=== PATIENT | female | born 1940 | race Caucasian/White ===

== ENCOUNTER 2023-11-28 12:27 | Emergency (ER) | payer MEDICARE ==
[~2023-11-28 12:27] MED LIST: DIPRIVAN 200 MG/20 ML IV ONE
[2023-11-28] MEDS ORDERED: LIDOCAINE HCL 2% 100 MG/5 ML IJ ONE (12:28)
--- NOTE | 2023-11-28 12:29 | XRAY ---
Indication: Bilateral L4-S1 MBB. Intraoperative fluoroscopy provided for 15 seconds. Single digital spot image submitted for interpretation demonstrates posterior needle tips projecting over expected left and right L4-S1 nerve roots. Correlate with intraoperative findings/report.
--- NOTE | 2023-11-28 12:33 | XRAY ---
15 seconds of fluoroscopy was used in surgery for a bilateral L4-S1 MBB.
[2023-11-28 12:59] VITALS: TEMP 97.1
[2023-11-28 13:21] LABS: Absolute Neutrophil Ct (ANC) 4.21 x10^3/uL (1.4-6.9); BASOPHIL % 0.5 % (0.0-0.4); Basophil (Absolute #) 0.04 x10^3/uL (0-0.4); Eosinophil % 1.8 % (0.00-5.0); Eosinophil (Absolute #) 0.13 x10^3/uL (0-0.5); Hematocrit 40.2 % (35-47); Hemoglobin 13.2 g/dL (12.0-16.0); IMMATURE GRAN # 0.01 x10^3u/L (0.00-0.03); IMMATURE GRAN % 0.1 % (0.00-0.4); Mean Cell Volume 96.6 fL (78-100); Mean Corpuscular Hemoglobin 31.7 pg (26-32); Mean Corpuscular Hgb Concent. 32.8 g/dL (32-36); Mean Platelet Volume 10.3 fL (7.5-11.0); Monocyte (Absolute #) 0.43 x10^3/uL (0.0-1.3); Monocytes % 5.8 % (0.0-12.0); Neutrophil % 56.8 % (36.0-66.0); Platelet Count 253 x10^3/uL (150-450); Red Blood Count 4.16 x10^6/uL (4.1-5.4); Red Cell Distribution Width 12.6 % (11.5-14.0); White Blood Count 7.4 x10^3/uL (4.0-10.5)
[2023-11-28 13:37] LABS: INR 0.98 (0.8-3.0); PROTIME 10.7 SECONDS (9.4-12.5); PTT 26.6 SECONDS (25.1-36.5)
[2023-11-28 13:44] LABS: ALBUMIN 4.2 g/dL (3.5-5.0); BILIRUBIN,TOTAL 0.8 mg/dL (0.2-1.3); Calcium 9.7 mg/dL (8.4-10.2); Creatinine 1 1.21 mg/dL (0.52-1.04); Potassium 4.3 mmol/L (3.5-5.1); Total Protein 7.2 g/dL (6.3-8.2)
[2023-11-28] MEDS ORDERED: Lactated Ringers 1,000 ML IV ONE (13:45)
--- NOTE | 2023-11-28 13:51 | XRAY ---
Indication: Atrial fibrillation. Comparison: None Portable apical lordotic chest demonstrates minimal left base subsegmental atelectasis/scarring. Remaining lungs clear. Heart not enlarged with tortuous descending aorta. Bony thorax intact with osteopenia, mild degenerative changes, and incompletely visualized lumbar dextroscoliosis. Impression: Nonacute chest with chronic features.
[2023-11-28 14:09] VITALS: BP 131/78; PULSE 88; RESP 18; O2SAT 95
--- NOTE | 2023-11-28 14:12 | ERPHSYRPT ---
- History of Present Illness Time Seen by Provider: 11/28/23 12:49 Source: patient Exam Limitations: no limitations Patient Subjective Stated Complaint: pt had injections to her back today and during the procedure they noticed that she developed a new onset of a-fib Triage Nursing Assessment: Pt was brought to the ER by a PACU nurse, hypertensive, denies pain, pulses normal, A-Fib, denies any chest pain, denies difficulty breathing, doesn't appear to be in any distress Physician History: 83-year-old female with history of hypertension, diabetes mellitus, GERD, chronic back pain who got injections today in the back, was not postop recovery when it was noticed that patient's rhythm was not sinus but atrial fibrillation and she has no history of A-fib. Patient does see Dr. Denney but has no known diagnosis. She denies any chest pain palpitations or shortness of breath. No abdominal pain nausea or vomiting. Denies any feeling of dizziness or lightheadedness. Does report some upset stomach yesterday. Allergies/Adverse Reactions: iodine Allergy (Verified 11/28/23 13:01) shellfish derived Allergy (Verified 11/28/23 13:01) Home Medications: Amlodipine Besylate 5 mg [Norvasc 5 mg] 5 mg PO DAILY 11/28/23 [History] Losartan Potassium [Cozaar] 100 mg PO DAILY 11/28/23 [History] Lubiprostone 24 mcg PO BID 11/28/23 [History] Metformin HCl [Metformin ER Gastric] 1,500 mg PO BID 11/28/23 [History] Omeprazole 20 mg PO DAILY 11/28/23 [History] Hx Influenza Vaccination/Date Given: Yes Hx Pneumococcal Vaccination/Date Given: Yes Travel Risk - International Travel Have you traveled outside of the country in past 3 weeks: No - Emerging Infectious Disease Are you exhibiting symptoms associated with any current EIDs: No - Review of Systems Constitutional: No Symptoms Eyes: No Symptoms Ears, Nose, & Throat: No Symptoms Respiratory: No Symptoms Cardiac: No Symptoms Abdominal/Gastrointestinal: No Symptoms Genitourinary Symptoms: No Symptoms Musculoskeletal: Arthralgias, Back Pain Skin: No Symptoms Neurological: No Symptoms Psychological: No Symptoms Endocrine: No Symptoms Hematologic/Lymphatic: No Symptoms Immunological/Allergic: No Symptoms - Past Medical History Pertinent Past Medical History: Yes Cardiac History: High Cholesterol, Hypertension Endocrine Medical History: Diabetes Type II - Past Surgical History Past Surgical History: Yes Gastrointestinal: Cholecystectomy Female Surgical History: Hysterectomy - Social History Smoking Status: Never smoker Exposure to second hand smoke: No Drug Use: none - Nursing Vital Signs Nursing Vital Signs: Initial Vital Signs Temperature 97.1 F 11/28/23 12:52 Pulse Rate 92 H 11/28/23 12:52 Respiratory Rate 19 11/28/23 12:52 Blood Pressure 153/67 11/28/23 12:52 O2 Sat by Pulse Oximetry 96 11/28/23 12:52 Pain Scale Pain Intensity 0 - Physical Exam General Appearance: no apparent distress, alert Eye Exam: PERRL/EOMI Ears, Nose, Throat Exam: normal ENT inspection, TMs normal, pharynx normal, moist mucous membranes Neck Exam: normal inspection, non-tender, supple, full range of motion Respiratory Exam: normal breath sounds, lungs clear Cardiovascular Exam: normal heart sounds, irregular Gastrointestinal/Abdomen Exam: soft, normal bowel sounds, No tenderness Extremity Exam: normal inspection, normal range of motion Neurologic Exam: alert, oriented x 3, cooperative, hand candle dipper II-XII nml as tested Skin Exam: normal color, warm SpO2 Interpretation: normal SpO2: 95 O2 Delivery: Room Air - Course EKG Interpreted by Me: RATE (91), A-fib, NORMAL AXIS, NORMAL INTERVALS, NORMAL QRS Ordered Tests: Active Orders 24 hr Category Date Time Status Inside Account Representative STAT Care 11/28/23 13:03 Active EKG-ER Only STAT Care 11/28/23 13:02 Active IV Insertion STAT Care 11/28/23 13:02 Active CHEST 1 VIEW (PORTABLE) Stat Exams 11/28/23 13:[address]O GUIDE NEEDLE PLACE-PMG Routine Exams 11/28/23 11:39 Completed SINGLE VIEW SPINE Routine Exams 11/28/23 11:39 Completed CBC W DIFF Stat Lab 11/28/23 13:15 Completed CK-Creatinine Phosphokinase Stat Lab 11/28/23 13:15 Completed CMP Stat Lab 11/28/23 13:15 Completed NT PRO BNPII Stat Lab 11/28/23 13:15 Completed POCT GLUCOSE Stat Lab 11/28/23 10:45 Completed PROTIME WITH INR Stat Lab 11/28/23 13:15 Completed PTT Stat Lab 11/28/23 13:15 Completed TROPONIN Q4H Lab 11/28/23 13:15 Completed TROPONIN Q4H Lab 11/28/23 17:15 Ordered TROPONIN Q4H Lab 11/28/23 21:15 Ordered EKG ONCE RT 11/28/23 12:17 Completed Medication Summary Discontinued Medications Generic Name Dose Route Start Last Admin Trade Name Shanita PRN Reason Stop Dose Admin Lactated Ringer's Confirm 11/28/23 13:45 Lactated Ringers Administered 11/28/23 13:46 Dose 1,000 mls @ ud IV .STK-MED ONE Propofol Confirm 11/28/23 11:49 Propofol 10 Mg/Ml 20ml Vial Administered 11/28/23 11:50 Dose 200 mg IV .STK-MED ONE Lab/Rad Data: Laboratory Result Diagrams 11/28/23 13:15 11/28/23 13:15 Laboratory Results 11/28/23 11/28/23 11/28/23 Range/Units 13:15 13:15 13:15 WBC (4.0-10.5) x10^3/uL RBC (4.1-5.4) x10^6/uL Hgb (12.0-16.0) g/dL Hct (35-47) % MCV (78-100) fL MCH (26-32) pg MCHC (32-36) g/dL RDW (11.5-14.0) % Plt Count (150-450) x10^3/uL MPV (7.5-11.0) fL Gran % (36.0-66.0) % Immature Gran % (Auto) (0.00-0.4) % Nucleat RBC Rel Count (0.00-0.1) % Eos # (Auto) (0-0.5) x10^3/uL Immature Gran # (Auto) (0.00-0.03) x10^3u/L Absolute Lymphs (auto) (1.0-4.6) x10^3/uL Absolute Monos (auto) (0.0-1.3) x10^3/uL Absolute Nucleated RBC (0.00-0.01) x10^3u/L Lymphocytes % (24.0-44.0) % Monocytes % (0.0-12.0) % Eosinophils % (0.00-5.0) % Basophils % (0.0-0.4) % Absolute Granulocytes (1.4-6.9) x10^3/uL Basophils # (0-0.4) x10^3/uL PT 10.7 (9.4-12.5) SECONDS INR 0.98 (0.8-3.0) APTT 26.6 (25.1-36.5) SECONDS Sodium 140 (135-145) mmol/L Potassium 4.3 (3.5-5.1) mmol/L Chloride 108 H (98-107) mmol/L Carbon Dioxide 22 (22-30) mmol/L Anion Gap 14.0 (5-15) MEQ/L BUN 26 H (7-17) mg/dL Creatinine 1.21 H (0.52-1.04) mg/dL Estimated GFR 45.0 ML/MIN Glucose 96 (74-106) mg/dL POC Glucometer (74 to 106) mg/dL Calcium 9.7 (8.4-10.2) mg/dL Total Bilirubin 0.80 (0.2-1.3) mg/dL AST 19 (14-36) U/L ALT 18 (0-35) U/L Alkaline Phosphatase 78 (38-126) U/L Creatine Kinase 79 (30-135) U/L Troponin I < 0.012 (0.000-0.033) ng/mL NT-Pro-B Natriuret Pep 189 (<300) pg/mL Serum Total Protein 7.2 (6.3-8.2) g/dL Albumin 4.2 (3.5-5.0) g/dL 11/28/23 11/28/23 Range/Units 13:15 10:45 WBC 7.4 (4.0-10.5) x10^3/uL RBC 4.16 (4.1-5.4) x10^6/uL Hgb 13.2 (12.0-16.0) g/dL Hct 40.2 (35-47) % MCV 96.6 (78-100) fL MCH 31.7 (26-32) pg MCHC 32.8 (32-36) g/dL RDW 12.6 (11.5-14.0) % Plt Count 253 (150-450) x10^3/uL MPV 10.3 (7.5-11.0) fL Gran % 56.8 (36.0-66.0) % Immature Gran % (Auto) 0.1 (0.00-0.4) % Nucleat RBC Rel Count 0.0 (0.00-0.1) % Eos # (Auto) 0.13 (0-0.5) x10^3/uL Immature Gran # (Auto) 0.01 (0.00-0.03) x10^3u/L Absolute Lymphs (auto) 2.60 (1.0-4.6) x10^3/uL Absolute Monos (auto) 0.43 (0.0-1.3) x10^3/uL Absolute Nucleated RBC 0.00 (0.00-0.01) x10^3u/L Lymphocytes % 35.0 (24.0-44.0) % Monocytes % 5.8 (0.0-12.0) % Eosinophils % 1.8 (0.00-5.0) % Basophils % 0.5 (0.0-0.4) % Absolute Granulocytes 4.21 (1.4-6.9) x10^3/uL Basophils # 0.04 (0-0.4) x10^3/uL PT (9.4-12.5) SECONDS INR (0.8-3.0) APTT (25.1-36.5) SECONDS Sodium (135-145) mmol/L Potassium (3.5-5.1) mmol/L Chloride (98-107) mmol/L Carbon Dioxide (22-30) mmol/L Anion Gap (5-15) MEQ/L BUN (7-17) mg/dL Creatinine (0.52-1.04) mg/dL Estimated GFR ML/MIN Glucose (74-106) mg/dL POC Glucometer 112 H (74 to 106) mg/dL Calcium (8.4-10.2) mg/dL Total Bilirubin (0.2-1.3) mg/dL AST (14-36) U/L ALT (0-35) U/L Alkaline Phosphatase (38-126) U/L Creatine Kinase (30-135) U/L Troponin I (0.000-0.033) ng/mL NT-Pro-B Natriuret Pep (<300) pg/mL Serum Total Protein (6.3-8.2) g/dL Albumin (3.5-5.0) g/dL - Progress Progress: unchanged Progress Note: 11/28/23 14:59 Patient is in A-fib rate controlled new onset. She is asymptomatic. Workup showed normal white count, chemistries with a creatinine of 1.2 with no previous comparison available. Chest x-ray negative for any acute cardiopulmonary findings. Negative troponins. Normal BNP. Patient is not in any distress at all, room air around 96%. I have discussed with Dr. Mcgovern, reviewed EKG which she agreed patient has A-fib, since its new onset, needs to be anticoagulated. Since patient has a procedure done today, we will not start anticoagulation today but tomorrow at a dose of 2.5 mg twice daily. She would follow-up outpatient with Dr. Denney later this week. Discussed with patient about her EKG, need for anticoagulation and went over all the contraindications of anticoagulation and also the risk factors involved with anticoagulation and she agreed with that. Daughter was also involved in decision-making. Discussed signs symptoms of worsening needing return to ER which they seem understanding. Discussed with Dr.: Other (Dr. Denney) Will see patient in: office Counseled pt/family regarding: lab results, diagnosis, need for follow-up, rad results Medical Desision Making - Independent Historian Additional History obtained from: Child - Discussion of managment Care discussed with:: specialist ([facility] Dr. Denney) Reviewed:: Test results Agreed on:: Treatment plan, need for follow-up Will see patient: In office - Diagnostic Testing Diagnostic test were ordered, analyzed, and reviewed by me: Yes Radiological Interpretation: Interpreted by me, Reviewed by me - Risk of complications The pt has a mod risk of morbidity or mortality based on: Need for prescription drug management - Departure Departure Disposition: Home Clinical Impression: New onset atrial fibrillation Condition: Stable Critical Care Time: No Referrals: Provider,Unknown [Primary Care Provider] - Follow up/PCP as directed JOHANNY DENNEY MD [CONSULTING PHYSICIAN] - Follow up/PCP as directed (Call for appointment later this week) Instructions: Atrial Fibrillation (DC) Additional Instructions: Follow-up with primary care and cardiology for reevaluation. Start taking Eliq uis 2.5 mg twice a day starting from tomorrow. Return to ER for palpitations, shortness of breath, worsening low back pain, numbness tingling weakness of lower extremities, confusion headache etc. Prescriptions: Apixaban [Eliquis 2.5 mg Tablet] 2.5 mg PO BID 30 Days #60 tablet
== END 2023-11-28 15:32 | disposition home or self-care (01) ==
LOC: ED 12:27 → EDSTATUS 12:27 → ED 15:32
DX: I48.91 Unspecified atrial fibrillation (principal); E11.9 Type 2 diabetes mellitus without complications; M47.816 Spondylosis without myelopathy or radiculopathy, lumbar region
CPT/HCPCS: 36415; 64493; 64494; 71045; 72020; 77002; 80053; 82550; 82947; 83880; 84484; 85025; 85610; 85730; 93005; 93041; 99284; J2704

== ENCOUNTER 2024-03-05 09:39 | Day surgery (SDC) | payer MEDICARE ==
[2024-03-05] MEDS ORDERED: BUPIVACAINE 0.5% VIAL IJ ONE (09:40)
[2024-03-05] MEDS ORDERED: DIPRIVAN 200 MG/20 ML IV ONE (11:39)
[2024-03-05] MEDS ORDERED: Lactated Ringers 1,000 ML IV ONE (12:43)
--- NOTE | 2024-03-05 13:27 | XRAY ---
Indication: Bilateral L4-S1 MBB. Intraoperative fluoroscopy provided for 14 seconds. Single digital spot image submitted for interpretation demonstrates posterior needle tips projecting over the expected left and right L4-S1 nerve roots. Correlate with intraoperative findings/report.
--- NOTE | 2024-03-05 13:29 | XRAY ---
14 seconds of fluoroscopy was used in surgery for a bilateral L4-S1 MBB.
== END 2024-03-05 12:10 ==
LOC: SDC-PAIN 09:39
PROVIDERS: ATTEND Psychiatry & Neurology Pain Medicine
DX: M47.816 Spondylosis without myelopathy or radiculopathy, lumbar region (principal); E11.9 Type 2 diabetes mellitus without complications
CPT/HCPCS: 64493; 64494; 72020; 77002; 82947; J2704

== ENCOUNTER 2024-04-24 09:56 | Day surgery (SDC) | payer MEDICARE ==
[2024-04-24] MEDS ORDERED: LIDOCAINE HCL 1% 50 MG/5 ML VL PF IJ ONE (09:57)
[2024-04-24] MEDS ORDERED: Depo-Medrol 40 MG/ML IM ONE (09:57)
[2024-04-24] MEDS ORDERED: BUPIVACAINE 0.5% VIAL IJ ONE (09:57)
[2024-04-24] MEDS ORDERED: DIPRIVAN 200 MG/20 ML IV ONE (11:45)
--- NOTE | 2024-04-24 12:45 | XRAY ---
Indication: Right L4-S1 RFA. Intraoperative fluoroscopy provided for 19 seconds. 4 digital spot images submitted for interpretation demonstrates posterior needle tips projecting over the expected right L4-S1 nerve roots. Correlate with intraoperative findings/report.
--- NOTE | 2024-04-24 12:47 | XRAY ---
19 seconds of fluoroscopy was used in surgery for a right L4-S1 RFA.
[2024-04-24] MEDS ORDERED: Lactated Ringers 1,000 ML IV ONE (14:03)
== END 2024-04-24 12:19 | disposition home or self-care (01) ==
LOC: SDC-PAIN 09:56
PROVIDERS: ATTEND Psychiatry & Neurology Pain Medicine
DX: M47.816 Spondylosis without myelopathy or radiculopathy, lumbar region (principal); M47.817 Spondylosis without myelopathy or radiculopathy, lumbosacral region; E11.9 Type 2 diabetes mellitus without complications
CPT/HCPCS: 64635; 64636; 72100; 77002; 82947; 99100; J2001; J2704

== ENCOUNTER 2024-05-07 09:27 | Day surgery (SDC) | payer MEDICARE ==
[2024-05-07] MEDS ORDERED: LIDOCAINE HCL 1% AMPUL 5 ML IJ ONE (09:28)
[2024-05-07] MEDS ORDERED: Depo-Medrol 40 MG/ML IM ONE (09:28)
[2024-05-07] MEDS ORDERED: BUPIVACAINE 0.5% VIAL IJ ONE (09:28)
[2024-05-07] MEDS ORDERED: Lactated Ringers 1,000 ML IV ONE (10:53)
[2024-05-07] MEDS ORDERED: DIPRIVAN 200 MG/20 ML IV ONE (11:12)
--- NOTE | 2024-05-07 12:52 | XRAY ---
Indication: Left L4-S1 RFA. Intraoperative fluoroscopy provided for 19 seconds. 4 digital spot image submitted for interpretation demonstrates posterior needle tips projecting over the expected left L4-S1 nerve roots. Correlate with intraoperative findings/report.
--- NOTE | 2024-05-07 13:08 | XRAY ---
19 seconds of fluoroscopy was used in surgery for a left L4-S1 RFA.
== END 2024-05-07 11:45 | disposition home or self-care (01) ==
LOC: SDC-PAIN 09:27
PROVIDERS: ATTEND Psychiatry & Neurology Pain Medicine
DX: M47.817 Spondylosis without myelopathy or radiculopathy, lumbosacral region (principal); E11.9 Type 2 diabetes mellitus without complications
CPT/HCPCS: 64635; 64636; 72100; 77002; 82947; 99100; J2704

== ENCOUNTER 2024-07-23 09:40 | Day surgery (SDC) | payer MEDICARE ==
[2024-07-23] MEDS ORDERED: BUPIVACAINE 0.5% VIAL IJ ONE (09:41)
[2024-07-23] MEDS ORDERED: Depo-Medrol 40 MG/ML IM ONE (09:41)
[2024-07-23] MEDS ORDERED: DIPRIVAN 200 MG/20 ML IV ONE (11:31)
--- NOTE | 2024-07-23 12:16 | XRAY ---
8 seconds of fluoroscopy was used in surgery for a bilateral sacroiliac joint injection.
--- NOTE | 2024-07-23 12:20 | XRAY ---
Indication: Bilateral SI joint injection. Intraoperative fluoroscopy provided for 8 seconds. 2 digital spot image submitted for interpretation demonstrates posterior needle tip projecting over left and right SI joint. Small amount of contrast injected for needle tip placement. Correlate with intraoperative findings/report.
== END 2024-07-23 12:15 | disposition home or self-care (01) ==
LOC: SDC-PAIN 09:40
PROVIDERS: ATTEND Psychiatry & Neurology Pain Medicine
DX: M46.1 Sacroiliitis, not elsewhere classified (principal); E11.9 Type 2 diabetes mellitus without complications
CPT/HCPCS: 27096; 72202; 77002; 82947; 99100; J2704; Q9966